=== PATIENT | female | born 1960 | race Two or more races ===

== ENCOUNTER 2023-02-26 06:04 | Day surgery (SDC) | payer OTHER ==
[~2023-02-26] VITALS: Ht 162.6 cm; Wt 68.9 kg
[~2023-02-26 06:04] MED LIST: METFORMIN HCL500 M3 PO; [UNRECOGNIZED DRUG - OTHER]
== END 2023-02-26 13:00 | disposition home or self-care (01) ==
LOC: CIR.AMB 06:04
PROVIDERS: ATTEND Obstetrics & Gynecology
DX: N84.0 Polyp of corpus uteri (principal); N95.0 Postmenopausal bleeding; E11.9 Type 2 diabetes mellitus without complications; Z20.822 Contact with and (suspected) exposure to COVID-19